=== PATIENT | female | born 1950 | race Two or more races ===

== ENCOUNTER 2020-04-12 09:01 | Outpatient (CLI) | payer OTHER ==
[~2020-04-12] VITALS: Ht 152.4 cm; Wt 88.0 kg
[2020-04-12] MEDS ORDERED: PRILOSEC OTC20 MG PO (11:31)
[2020-04-12] MEDS ORDERED: PEPCID AC20 MG PO (11:31)
== END 2020-04-12 11:47 | disposition home or self-care (01) ==
LOC: OFIC 805 09:01
PROVIDERS: ATTEND Otolaryngology
DX: R13.12 Dysphagia, oropharyngeal phase (principal); H61.23 Impacted cerumen, bilateral; E04.1 Nontoxic single thyroid nodule; R07.0 Pain in throat; H93.8X1 Other specified disorders of right ear

== ENCOUNTER 2020-05-13 09:42 | Outpatient (CLI) | payer OTHER ==
[~2020-05-13 09:42] MED LIST: PEPCID AC20 MG PO; PRILOSEC OTC20 MG PO
== END 2020-05-13 10:15 | disposition home or self-care (01) ==
LOC: OFIC 805 09:42
PROVIDERS: ATTEND Otolaryngology
DX: E04.1 Nontoxic single thyroid nodule (principal); R13.19 Other dysphagia; R07.0 Pain in throat

== ENCOUNTER 2020-08-19 14:32 | Outpatient (CLI) | payer OTHER | END 2020-08-19 15:00 | disposition home or self-care (01) | LOC: OFIC 805 14:32 | PROVIDERS: ATTEND Otolaryngology | DX: K21.9 Gastro-esophageal reflux disease without esophagitis (principal) ==